=== PATIENT | female | born 1940 | race Two or more races ===

== ENCOUNTER → 2017-11-10 | Outpatient (CLI) | payer MEDICARE, OTHER ==
[2017-11-10 10:22] LABS: AUTOMATED NEUTROPHIL # 3.1 TH/MM3 (1.8-7.7); BASOPHIL # 0.1 TH/MM3 (0-0.2); BASOPHIL % 1.2 % (0.0-2.0); EOSINOPHIL # 0.4 TH/MM3 (0-0.4); EOSINOPHIL % 6.3 % (0.0-4.0); HEMATOCRIT 36.5 % (35.0-46.0); HEMO FLAGS DIFF FINAL; LYMPH % 39.1 % (9.0-44.0); LYMPHOCYTE # 2.8 TH/MM3 (1.0-4.8); MEAN CELL VOLUME 90.1 FL (80.0-100.0); MEAN CORPUSCULAR HGB CONC 33.2 % (32.0-36.0); NEUT % 43.4 % (16.0-70.0); PLATELET COUNT 289 TH/MM3 (150-450); RED BLOOD COUNT 4.05 MIL/MM3 (4.00-5.30); WHITE BLOOD COUNT 7.1 TH/MM3 (4.0-11.0)
[2017-11-10 10:49] LABS: ANION GAP 7 MEQ/L (5-15); AST (GOT) 22 U/L (15-37); BICARBONATE 27.4 MEQ/L (21.0-32.0); BLOOD UREA NITROGEN 19 MG/DL (7-18); CHLORIDE 108 MEQ/L (98-107); GLOMERULAR FILTRATION RATE 63 ML/MIN (>89); GLUCOSE,FASTING 91 MG/DL (74-99); POTASSIUM 4.1 MEQ/L (3.5-5.1); SODIUM (NA) 142 MEQ/L (136-145)
[2017-11-10 10:55] LABS: ALKALINE PHOSPHATASE 66 U/L (45-117); ALT (GPT) 33 U/L (10-53); HDL CHOLESTEROL 82.6 MG/DL (40.0-60.0); LDL CHOLESTEROL 154 MG/DL (0-99); TOTAL BILIRUBIN ADULT 1.1 MG/DL (0.2-1.0)
== END ==
LOC: CLAB 09:52
PROVIDERS: ATTEND Family Medicine
DX: I10 Essential (primary) hypertension (principal); D64.9 Anemia, unspecified; E78.5 Hyperlipidemia, unspecified; R53.81 Other malaise; Z79.891 Long term (current) use of opiate analgesic
CPT/HCPCS: 36415; 80053; 80061; 82164; 85025

== ENCOUNTER → 2017-12-07 | Outpatient (CLI) | payer MEDICARE, MEDICAID ==
[2017-12-07 11:18] LABS: AUTOMATED NEUTROPHIL # 3.3 TH/MM3 (1.8-7.7); BASOPHIL # 0.1 TH/MM3 (0-0.2); BASOPHIL % 1.2 % (0.0-2.0); EOSINOPHIL # 0.3 TH/MM3 (0-0.4); EOSINOPHIL % 5.2 % (0.0-4.0); HEMATOCRIT 38.8 % (35.0-46.0); LYMPHOCYTE # 1.9 TH/MM3 (1.0-4.8); MEAN CELL VOLUME 88.2 FL (80.0-100.0); MEAN CORPUSCULAR HEMOGLOBIN 29.7 PG (27.0-34.0); MEAN CORPUSCULAR HGB CONC 33.6 % (32.0-36.0); MONO % 10.7 % (0.0-8.0); MONOCYTE # 0.7 TH/MM3 (0-0.9); NEUT % 52.9 % (16.0-70.0); PLATELET COUNT 314 TH/MM3 (150-450); WHITE BLOOD COUNT 6.3 TH/MM3 (4.0-11.0)
[2017-12-07 11:44] LABS: ALBUMIN 4.1 GM/DL (3.4-5.0); AST (GOT) 28 U/L (15-37); BICARBONATE 28.7 MEQ/L (21.0-32.0); BLOOD UREA NITROGEN 12 MG/DL (7-18); CALCIUM 9.6 MG/DL (8.5-10.1); CHLORIDE 106 MEQ/L (98-107); CREATININE 0.89 MG/DL (0.50-1.00); GLOMERULAR FILTRATION RATE 61 ML/MIN (>89); GLUCOSE,FASTING 99 MG/DL (74-99); SODIUM (NA) 142 MEQ/L (136-145)
[2017-12-07 11:45] LABS: ALT (GPT) 36 U/L (10-53)
[2017-12-07 11:47] LABS: ALKALINE PHOSPHATASE 69 U/L (45-117)
[2017-12-07 12:07] LABS: WESTERGREN SEDIMENTATION RATE 10 mm/hr (0-30)
== END ==
LOC: CLAB 10:19
PROVIDERS: ATTEND Psychiatry & Neurology Neurology
DX: M60.9 Myositis, unspecified (principal); M79.1 Myalgia; I77.6 Arteritis, unspecified; I99.9 Unspecified disorder of circulatory system; E55.9 Vitamin D deficiency, unspecified; Z79.899 Other long term (current) drug therapy
CPT/HCPCS: 36415; 80053; 82306; 82550; 85025; 85652

== ENCOUNTER 2018-03-03 10:48 | Emergency (ER) | payer MEDICARE, MEDICAID ==
[2018-03-03] MEDS ORDERED: IOHEXOL 350 MG/ML 10 ML VIAL (for RAD DIAG) IVCONTRAST ONE (10:49)
[2018-03-03 10:52] VITALS: BP 150/73; PULSE 103; RESP 20; TEMP 97.7; O2SAT 98
[2018-03-03] MEDS ORDERED: SODIUM CHLOR 0.9% 1000 ML INJ 1,000 ML IV SCH (11:05)
--- NOTE | 2018-03-03 11:09 | PD ---
HPI Chief Complaint: Cold / Flu Symptoms Time Seen by Provider: 10:57 Travel History International Travel<30 days: No Contact w/Intl Traveler<30days: No Traveled to known affect area: No History of Present Illness HPI This is a 77-year-old female with questionable history of sarcoidosis diagnosed 10 years ago however she reports that she has never been on any medications for this possible diagnosis. She presents for evaluation of cough and hoarse voice. Symptoms started 4 days ago. She reports that she is only able to whispers softly. She reports a cough with productive sputum production. She reports an elevated temperature with maximum temperature recorded at home of 100.4, typically improves with Tylenol and Advil use. She denies sore throat, chest pain, shortness of breath, abdominal pain, nausea or vomiting, rash. She reports that she has had a normal appetite. She has no other complaints at this time. [facility] Social History Tobacco Use: No Allergies-Medications (Allergen,Severity, Reaction): Coded Allergies: No Known Allergies (Unverified , 03/03/18) Review of Systems Except as stated in HPI: all other systems reviewed are Neg Physical Exam Narrative GENERAL: Well-developed well-nourished female no acute distress. SKIN: Warm and dry. HEAD: Atraumatic. Normocephalic. EYES: Pupils equal and round. No scleral icterus. No injection or drainage. ENT: No nasal bleeding or discharge. Mucous membranes pink and moist. Voice is hoarse. No stridor or drooling. No oral pharyngeal erythema or exudate. NECK: Trachea midline. No JVD. No lymphadenopathy. CARDIOVASCULAR: Regular rate and rhythm. No murmur appreciated. RESPIRATORY: No accessory muscle use. Clear to auscultation. Breath sounds equal bilaterally. GASTROINTESTINAL: Abdomen soft, non-tender, nondistended. Hepatic and splenic margins not palpable. Data Data Last Documented VS Vital Signs Date Time Temp Pulse Resp B/P (MAP) Pulse Ox O2 Delivery O2 Flow Rate FiO2 03/03/18 10:52 97.7 103 20 150/73 (98) [address] Soft Tiss Neck W Iv Cont (03/03/18 ) Complete Blood Count With Diff (03/03/18 11:05) Basic Metabolic Panel (Bmp) (03/03/18 11:05) Influenzae A/B Antigen (03/03/18 11:05) Sodium Chlor 0.9% 1000 Ml Inj (Ns 1000 M (03/03/18 11:05) Chest, Single Ap (03/03/18 11:05) Group A Rapid Strep Screen (03/03/18 11:09) Strep Culture (Group A) (03/03/18 11:25) Iohexol 350 Inj (Omnipaque 350 Inj) (03/03/18 10:49) Ed Discharge Order (03/03/18 14:47) Labs Laboratory Tests Test 03/03/18 11:25 White Blood Count 7.3 TH/MM3 Red Blood Count 4.09 MIL/MM3 Hemoglobin 12.9 GM/DL Hematocrit 36.7 % Mean Corpuscular Volume 89.6 FL Mean Corpuscular Hemoglobin 31.5 PG Mean Corpuscular Hemoglobin Concent 35.1 % Red Cell Distribution Width 14.6 % Platelet Count 267 TH/MM3 Mean Platelet Volume 7.9 FL Neutrophils (%) (Auto) 55.6 % Lymphocytes (%) (Auto) 31.5 % Monocytes (%) (Auto) 10.0 % Eosinophils (%) (Auto) 2.0 % Basophils (%) (Auto) 0.9 % Neutrophils # (Auto) 4.1 TH/MM3 Lymphocytes # (Auto) 2.3 TH/MM3 Monocytes # (Auto) 0.7 TH/MM3 Eosinophils # (Auto) 0.1 TH/MM3 Basophils # (Auto) 0.1 TH/MM3 CBC Comment DIFF FINAL Differential Comment Blood Urea Nitrogen 15 MG/DL Creatinine 0.91 MG/DL Random Glucose 96 MG/DL Calcium Level 9.0 MG/DL Sodium Level 143 MEQ/L Potassium Level 4.0 MEQ/L Chloride Level 109 MEQ/L Carbon Dioxide Level 27.9 MEQ/L Anion Gap 6 MEQ/L Estimat Glomerular Filtration Rate 60 ML/MIN [facility] Medical Decision Making Medical Screen Exam Complete: Yes Emergency Medical Condition: Yes Medical Record Reviewed: Yes Differential Diagnosis Laryngitis, pharyngitis, epiglottitis, pneumonia, bronchitis, influenza Narrative Course This is a 77-year-old female with 4 days of hoarse voice and cough as well as low-grade fevers. She appears well. She does have a hoarse voice. Her lungs are clear to auscultation. CT soft tissue neck with contrast reveals CONCLUSION: Thyroid nodule. . Nonspecific fibrotic interstitial changes in the lung apices. CBC is unremarkable. BMP is unremarkable. Influenza antigen and group a strep screen are negative. Chest x-ray reveals no acute disease. The patient appears to have a viral laryngitis. She is stable for discharge. Diagnosis Primary Impression: Laryngitis Additional Instructions: Stay well hydrated and well-nourished. Vocal rest. Warm humidified air. Follow-up with primary care physician as needed. Return for any emergent medical conditions. Med/Other Pt SpecificInfo: No Change to Meds Disposition: 01 DISCHARGE HOME Condition: Stable Burt Loco Mar 03, 2018 11:09
[2018-03-03 12:04] LABS: AUTOMATED NEUTROPHIL # 4.1 TH/MM3 (1.8-7.7); BASOPHIL # 0.1 TH/MM3 (0-0.2); BASOPHIL % 0.9 % (0.0-2.0); EOSINOPHIL # 0.1 TH/MM3 (0-0.4); HEMATOCRIT 36.7 % (35.0-46.0); HEMOGLOBIN 12.9 GM/DL (11.6-15.3); LYMPH % 31.5 % (9.0-44.0); LYMPHOCYTE # 2.3 TH/MM3 (1.0-4.8); MEAN CELL VOLUME 89.6 FL (80.0-100.0); MEAN CORPUSCULAR HEMOGLOBIN 31.5 PG (27.0-34.0); MEAN CORPUSCULAR HGB CONC 35.1 % (32.0-36.0); MEAN PLATELET VOLUME 7.9 FL (7.0-11.0); MONOCYTE # 0.7 TH/MM3 (0-0.9); NEUT % 55.6 % (16.0-70.0); PLATELET COUNT 267 TH/MM3 (150-450); RED BLOOD COUNT 4.09 MIL/MM3 (4.00-5.30); RED CELL DISTRIBUTION WIDTH 14.6 % (11.6-17.2); WHITE BLOOD COUNT 7.3 TH/MM3 (4.0-11.0)
[2018-03-03 12:15] LABS: BICARBONATE 27.9 MEQ/L (21.0-32.0); CREATININE 0.91 MG/DL (0.50-1.00)
--- NOTE | 2018-03-03 13:20 | RADRPT ---
EXAM DATE/TIME: 03/03/2018 12:42 [facility] COMPARISON: No previous studies available for comparison. INDICATIONS : Anterior neck pain for five days. IV CONTRAST: 71 cc Omnipaque 350 (iohexol) IV RADIATION DOSE: 18.32 CTDIvol (mGy) MEDICAL HISTORY : None SURGICAL HISTORY : None. ENCOUNTER: Initial ACUITY: 4 - 6 days PAIN SCALE: 8/10 LOCATION: Bilateral anterior neck region. TECHNIQUE: Volumetric scanning of the neck was performed. Using automated exposure control and adjustment of th e mA and/or kV according to patient size, radiation dose was kept as low as reasonably achievable to obtain optimal diagnostic quality images. DICOM format image data is available electronically for r eview and comparison. FINDINGS: NASOPHARYNX: The nasopharyngeal airway has a normal configuration. No mucosal thickening or mass is seen. OROPHARYNX: The intrinsic muscles of the tongue are symmetric. The tonsillar pillars are intact. The prevertebr al soft tissues are not thickened. LARYNX: The supraglottic, glottic, and infraglottic structures are intact. PARAPHARYNGEAL: The parapharyngeal space is intact. SALIVARY GLANDS: The parotid and submandibular glands are intact. LYMPH NODES: No enlarged or necrotic-appearing nodes. THYROID: Calcified bilobed nodule involving the isthmus of the thyroid measuring about 2.7 cm. BONES: Unremarkable. Fibroparenchymal changes in the lung apices bilaterally. CONCLUSION: Thyroid nodule. . Nonspecific fibrotic interstitial changes in the lung apices. Michael Mares MD on March 03, 2018 at 13:15 Board Certified Radiologist. This report was verified electronically.
--- NOTE | 2018-03-03 14:42 | RADRPT ---
EXAM DATE/TIME: 03/03/2018 11:26 [facility] COMPARISON: No previous studies available for comparison. INDICATIONS : Patient complains of cough and pain in throat. Patient states they lost their voice yesterday. MEDICAL HISTORY : None. SURGICAL HISTORY : None. ENCOUNTER: Initial ACUITY: 1 day PAIN SCORE: 0/10 LOCATION: chest FINDINGS: A single view of the chest demonstrates the lungs to be symmetrically aerated without evidence of mas s, infiltrate or effusion. The cardiomediastinal contours are unremarkable. Osseous structures are intact. CONCLUSION: No acute disease. Michael Mares MD on March 03, 2018 at 14:39 Board Certified Radiologist. This report was verified electronically.
== END 2018-03-03 14:59 | disposition home or self-care (01) ==
LOC: NEPD 10:48
DX: J04.0 Acute laryngitis (principal)
CPT/HCPCS: 70491; 71045; 80048; 85025; 87081; 87804; 87880; 96360; 99285; J7030; Q9967

== ENCOUNTER → 2018-03-12 | Outpatient (CLI) | payer MEDICARE, MEDICAID ==
[2018-03-12 11:17] LABS: FREE T4 0.94 NG/DL (0.76-1.46)
== END ==
LOC: CLAB 09:08
PROVIDERS: ATTEND Family Medicine
DX: Z01.84 Encounter for antibody response examination (principal); E03.9 Hypothyroidism, unspecified; Z79.891 Long term (current) use of opiate analgesic
CPT/HCPCS: 36415; 84439; 84443